=== PATIENT | female | born 1930 | race African-American/Black ===

== ENCOUNTER → 2016-12-19 | Outpatient (CLI) | payer MEDICARE, OTHER ==
[~2016-12-19] MED LIST: BUPIVACAINE MPF 0.25% 10 ML VIAL. ONE; CHOL200044 PO; GLUC1TAB26 PO; HYDR-971 PO; IOHEXOL 180 MG/ML 10 ML VIAL. ONE; LEVO100T PO; LOSA1TAB17 PO; LOVA40TA2 PO; MAGN100T3 PO; METO25TA9 PO; MULT-658 PO; OMEG500C3 PO; TRAM50TA PO; methylPREDNISolone ACETATE 80 MG/ML VIAL. ONE
--- NOTE | 2016-12-20 09:38 | PN ---
DATE: 12/19/2016 PROGRESS NOTE DIAGNOSES: 1. Cervical radiculopathy with cervical spinal stenosis. 2. Lumbar radiculopathy with lumbar spinal stenosis and degenerative disk disease. 3. Primary osteoarthritis, bilateral knee joint. HISTORY OF PRESENT ILLNESS: The patient is an 86-year-old female who returns for followup status post cervical epidural steroid injection, most recently on 11/27/2016. The patient did very well with these; with approximately 80-90% improvement in her neck and upper extremities, right arm specifically much more improved. The patient reports it much better. She is doing very well with this. Her main complaint today is knee pain bilaterally, left much greater than right, which is a 10 on a scale of 10, as well as weakness in her legs with walking and standing, worse with changing positions or standing on one leg or climbing steps or the curb on the street when she puts all of her weight on her left leg. The patient reports her right leg is more comfortable performing these activities, but still very painful as well, but the left leg is much more painful. The patient reports no new motor or sensory deficits or other complaints. No new bowel or bladder incontinence or other changes. PHYSICAL EXAMINATION: VITAL SIGNS: The patient's blood pressure is 139/67, pulse , respirations are 18, temperature 98.4 degrees Fahrenheit. GENERAL: The patient is awake, alert, oriented, appropriate, very pleasant demeanor. The patient is accompanied by with her cousin. HEENT: Head shows normocephalic, atraumatic. Extraocular movements are intact, symmetrical. Oral cavity, mucous membranes are moist and pink. NECK: Shows anterior throat supple without palpable lymphadenopathy noted. Swallow reflex is symmetrical. CHEST: Shows normal on inspection. Breath sounds are clear to auscultation bilaterally. HEART: Shows S1 and S2 clear. ABDOMEN: Soft, nontender, nondistended. No palpable organomegaly is noted. No rebound or guarding demonstrated. BACK: Shows spine grossly midline. Cervical paraspinous muscle shows some very mild tenderness with palpation only with very deep palpation, more on the right than the left in the inferior aspect of the cervical paraspinous muscles in the superior medial aspect of the trapezius without asymmetry, without trigger points and no radiation. EXTREMITIES: The patient's upper extremities show deep tendon reflexes at 1+ in the biceps and triceps tendons. Motor exam remain strong at about 4 on a scale of 5 with plc controls engineer strength and is more equal with right and left plc controls engineer strength at 4 out of 5 on exam today. The patient's lower extremities show some significant tenderness over the left knee with even passive movement, but without any ratcheting or clicking right side without ratcheting or clicking as on the left, painful with standing. The patient shows significant pain with putting all of her weight on her left foot and loses balance very quickly as well. She is using a walker to ambulate. Has a very shuffling gait, appears to favor the left lower extremity slightly more than the right. Motor exam is however, is intact with 5/5 dorsiflexion and extension. Options were discussed with the patient and the patient's old chart was reviewed as her current medication regimen and updated. Current review of systems updated today as well and we will proceed with a left intra-articular knee joint injection with fluoroscopic guidance. Risks were again discussed including, but not limited to bleeding, infection, possibility of intravascular injection sequelae, spread of local anesthetic and numbness, side effects of steroid medication and poor results regarding pain control. The patient understands and wishes to proceed. The patient will return to clinic in approximately 2 weeks for followup. She was counseled to return appointment, appointment, activity level and side effects to be aware of. DIAGNOSIS: Primary osteoarthritis, bilateral knee joint. PROCEDURES: Left knee intra-articular injection with C-arm fluoroscopic guidance under sterile prep and drape using local anesthetic. MEDICATION INJECTED: Depo-Medrol 80 mg plus 3 mL of 0.25% bupivacaine and 1.5 mL of Isovue for contrast. CONDITION AT DISCHARGE: Stable. The patient tolerated the procedure well, had no complications. MAKAYLA KOCH MD DR: MENDY/michelle JOB#: [id number] / [id number]
== END | disposition home or self-care (01) ==
LOC: PNCL 13:54
PROVIDERS: ATTEND Anesthesiology
DX: M17.0 Bilateral primary osteoarthritis of knee (principal); E78.00 Pure hypercholesterolemia, unspecified; I10 Essential (primary) hypertension; E03.9 Hypothyroidism, unspecified; Z98.41 Cataract extraction status, right eye; Z98.42 Cataract extraction status, left eye
CPT/HCPCS: 20610; J1040; J3490

== ENCOUNTER → 2017-01-21 | Outpatient (CLI) | payer MEDICARE, OTHER ==
[~2017-01-21] MED LIST changes: -BUPIVACAINE MPF 0.25% 10 ML VIAL. ONE; +methylPREDNISolone ACETATE 40 MG/ML VIAL. ONE
--- NOTE | 2017-01-22 10:56 | PAIN ---
DATE OF SERVICE: 01/21/2017 DIAGNOSES: 1. Cervical radiculopathy with cervical spinal stenosis. 2. Lumbar radiculopathy with lumbar degenerative disk disease and lumbar spinal stenosis. 3. Osteoarthritis, bilateral knees. HISTORY OF PRESENT ILLNESS: The patient is an 86-year-old female who returns for followup status post left knee joint injection on 12/19/2016. The patient is also status post lumbar epidural steroid injections and cervical epidural steroid injections, most recently on 11/27/2016 for her last cervical injection. The patient reports she did very well after each of these with about 80% improvement but the pain in her neck and right upper extremity is now returning not to baseline but about 50% or so. The patient reports it is a 6-7 on a scale of 10; worse in the morning; it is aching, sometimes sharp and dull pain, radiating to bilateral upper extremities, mostly in the right side with some cramping as well. Also, some low back pain and lower extremity pain and cramps, but it is much secondary to her neck and right upper extremity pain. The patient reports no loss of motor function, but significant tenderness and pain with movement of the right upper extremity. Any weightbearing at all, carrying any items with the right arm or bringing her arm away from her body out to the side, it is beginning to impede how she is getting dressed in the day and just any activities using her right upper extremity. The patient reports no loss of motor function, but significant tenderness and pain in the right arm as noted. PHYSICAL EXAMINATION: VITAL SIGNS: Today, the patient's blood pressure is 161/72, pulse 78, respirations 16, temperature 98.3 degrees Fahrenheit, height is 5 feet 6 inches, weight is 138 pounds. GENERAL: The patient is awake, alert, oriented, appropriate, very pleasant demeanor. HEENT: Shows normocephalic and atraumatic. Extraocular movements are intact, symmetrical. Oral cavity shows mucous membranes are moist and pink. Dentition is intact. NECK: Shows anterior throat supple. CHEST: Shows normal on inspection. Breath sounds are clear to auscultation bilaterally. HEART: Shows S1 and S2 clear. No murmurs auscultated. ABDOMEN: Soft, nontender, nondistended. No palpable organomegaly is noted. BACK: The patient's back shows spine grossly in the midline. Neck shows some moderate paraspinous musculature tenderness in the bilateral inferior aspect of the cervical paraspinous muscles diffusely without asymmetry. The patient does show good rotational motion both laterally as well as extension and flexion with some minor guarding with extension and minor pain reported, but not with forward flexion. EXTREMITIES: Upper extremity showed deep tendon reflexes at 1+ in the biceps and triceps tendons. Motor exam is strong with supervisor cab strength rated at approximately 4 on a scale of 5, but equal and symmetrical as is biceps and triceps flexion. Options were discussed with the patient and the patient's old chart was reviewed as her current medication regimen and updated. Current review of systems updated today as well and we will proceed with the cervical epidural steroid injection with fluoroscopic guidance as the first in this series. Risks were again discussed including but not limited to bleeding, infection, possibility of epidural hematoma, subsequent neurologic compromise, dural puncture, headaches, spinal cord and/or nerve damage, side effects of steroid medication and poor results regarding pain control. The patient understands and wishes to proceed. The patient will return to the clinic in approximately 2 weeks for followup, was counseled on return appointment, activity level and side effects to be aware of. DIAGNOSES: Cervical radiculopathy with cervical spinal stenosis. PROCEDURE: Cervical epidural steroid injection in translaminar approach at the C6-C7 level using C-arm fluoroscopic guidance under sterile prep and drape, using local anesthesia. MEDICATIONS INJECTED: Depo-Medrol 120 mg plus 5 mL of preservative-free normal saline and 2 mL of Isovue for contrast. CONDITION AT DISCHARGE: Stable. The patient tolerated the procedure well, had no complications. MAKAYLA KOCH MD DR: MENDY/michelle JOB#: [id number] / [id number]
== END | disposition home or self-care (01) ==
LOC: PNCL 11:39
PROVIDERS: ATTEND Anesthesiology
DX: M48.02 Spinal stenosis, cervical region (principal); M54.12 Radiculopathy, cervical region; E03.9 Hypothyroidism, unspecified; E78.00 Pure hypercholesterolemia, unspecified; I10 Essential (primary) hypertension; Z98.41 Cataract extraction status, right eye; Z98.42 Cataract extraction status, left eye
CPT/HCPCS: 62321; J1030; J1040

== ENCOUNTER → 2017-01-28 | Outpatient (CLI) | payer MEDICARE, OTHER ==
[~2017-01-28] MED LIST changes: -IOHEXOL 180 MG/ML 10 ML VIAL. ONE; +REGADENOSON 0.4 MG/5 ML DISP.SYRIN. IV ONE; -methylPREDNISolone ACETATE 40 MG/ML VIAL. ONE; -methylPREDNISolone ACETATE 80 MG/ML VIAL. ONE
--- NOTE | 2017-01-28 15:09 | RAD ---
APPROVED REPORT Test Type: Pharmacological Stress Nurse/Tech: Katie Merchant R.N. Test Indications: chest tightness Cardiac History: heart murmur, htn, Medications: see ehr Medical History: see ehr Resting ECG: sr Resting Heart Rate: 64 bpm Resting Blood Pressure: 198/78mmHg Pretest Chest Pain: No chest pain Nurse/Tech Notes lungs cta, heart tones regular, good radial pulse Consent: The procedure was explained to the patient in lay terms. Informed consent was witnessed. [facility] eout was entered into [facility]. History and Stress Test performed by Katie Merchant R.N. Pharm. Details Pharmacologic stress testing was performed using 0.4mg per 5ml of regadenoson given intravenously ove r 7-10 seconds. Stress Symptoms chest tightness POST EXERCISE Reason for Termination: Infusion complete Max HR: 89 bpm Max Blood Pressure: 194/82mmHg Chest Pain: Yes. see above Arrhythmia: No. ST Change: Yes. ST depression in mult leads during recovery INTERPRETATION Stress EKG Conclusion: The resting EKG shows a sinus rhythm with mild nonspecific ST changes. The stress EKG shows no significant changes from baseline. No EKG evidence of stress-induced ischemia. Imaging Protocol IMAGE PROTOCOL: Rest Tc-99m/stress Tc-99m 1 day Rest: Stress: Viability: Radiopharm.Tc99m DrecycltrYu80z Sestamibi Ebim91xLs 32mCi Duration 15min. 10min. Img Date 01/28/2017 01/28/2017 Inj-Img Pqnh08sdx. 60min. Rest Admin Site:IV - Right AntecubitalAdministrator:RT Umer (R)(N) Stress Admin Site: IV - Right AntecubitalAdministrator: RT Umer (R)(N) STRESS DATA End Diast. Vol.87.0mlAv. Heart Rate79.0bpm End Syst. Vol.31.0mlCO Index BSA0.0L/min Myocardial Olqz831.0gEject. Bfdwgtzs05.0% Stress Rates Pk. Fill Rate2.13EDV/secLVtime Pk. Fill 175.52msec Pk. Empty Rate4.38ESV/secLVtime Pk. Squrk010.44msec 10/23 Pk. Fill1.26EDV/sec Stress Scores Regional WT1.00Summed WT13.00 Regional WM0.00Summed WM8.00 LV Perfusion The stress scans showed no significant defects. The rest scans showed no significant defects. Nuclear imaging shows no reversible ischemia or infarct. Wall Motion Normal left ventricular systolic function with an ejection fraction of 64%. LV Perf. Quant 17 Seg. SSS2.00 17 Seg. SRS0.00 17 Seg. SDS2.00 Stress Defect Extent (% LAD)0.00Rest Defect Extent (% LAD)0.00Rev. Defect Extent (% LAD)0.00 Stress Defect Extent (% LCX) 0.00Rest Defect Extent (% LCX)0.00Rev. Defect Extent (% LCX)0.00 Stress Defect Extent (% RCA)0.00Rest Defect Extent (% RCA)0.00Rev. Defect Extent (% RCA)0.00 Stress Defect Extent (% MONTSERRAT)0.00Rest Defect Extent (% MONTSERRAT)0.00Rev. Defect Extent (% MONTSERRAT)0.00 Conclusion 1. No EKG evidence of stress-induced ischemia. 2. Nuclear medicine imaging shows no reversible ischemia or infarct. 3. Normal left ventricular systolic function with an ejection fraction of 64%. 4. Low risk Lexiscan nuclear stress test.
--- NOTE | 2017-01-28 16:30 | CARD ---
APPROVED REPORT EXAM: Two-dimensional and M-mode echocardiogram with Doppler and color Doppler. Other Information Quality : GoodHR: 72bpm Rhythm : NSR INDICATION Murmur RISK FACTORS Hyperlipidemia Family History 2D DIMENSIONS RVDd2.3 (2.9-3.5cm)Left Atrium(2D)3.4 (1.6-4.0cm) IVSd1.2 (0.7-1.1cm)Aortic Root(2D)4.4 (2.0-3.7cm) LVDd4.8 (3.9-5.9cm)LVOT Diameter2.3 (1.8-2.4cm) PWd1.3 (0.7-1.1cm)LVDs3.1 (2.5-4.0cm) FS (%) 35.4 %SV70.3 ml Aortic Valve AoV Peak Chip.155.1cm/sAoV VTI26.1cm AO Peak GR.9.6mmHgLVOT Peak Chip.128.5cm/s AO Mean GR.4mmHgAVA (VMAX)3.53cm2 AI P 1/2 Eafg722sp Mitral Valve MV E Iokbuzbo28.1cm/sMV E Peak Gr.3mmHg MV DECEL PEIF267ejNS A Fdrsyhjy95.8cm/s MV E Mean Gr.1mmHgE/A Ratio1.7 MV A Hisxqloh321lg Pulmonary Valve PV Peak Cwsouwrt69.4cm/s Tricuspid Valve TR P. Wrqunsnn888zp/sTR Peak Gr.43mmHg Pulmonary Vein S1 Eirltmcy19.6cm/sD2 Iktkqrmh79.6cm/s PVa ebfyzckv99rmjg LEFT VENTRICLE The left ventricle is normal size. There is mild concentric left ventricular hypertrophy. The left ve ntricular systolic function is normal and the ejection fraction is within normal range. The Ejection Fraction is 55-60%. There is normal LV segmental wall motion. Transmitral Doppler flow pattern is Gra de II-pseudonormal filling dynamics. RIGHT VENTRICLE The right ventricle is normal size. There is normal right ventricular wall thickness. The right ventr icular systolic function is normal. ATRIA The left atrium is mildly dilated. The right atrium size is normal. The interatrial septum is intact with no evidence for an atrial septal defect or patent foramen ovale as noted on 2-D or Doppler imagi ng. AORTIC VALVE The aortic valve is mildly sclerotic. The aortic valve is trileaflet. Doppler and Color Flow revealed mild to moderate aortic regurgitation. There is no significant aortic valvular stenosis. MITRAL VALVE The mitral valve leaflets are thickened and calcified. There is no evidence of mitral valve prolapse. There is no mitral valve stenosis. Doppler and Color Flow revealed mild mitral regurgitation. TRICUSPID VALVE Doppler and Color Flow revealed mild tricuspid regurgitation. The pulmonary artery systolic pressure is estimated at 46 mmHg. PULMONIC VALVE Doppler and Color Flow revealed moderate pulmonic valvular regurgitation. There is no pulmonic valvul ar stenosis. GREAT VESSELS There is enlargement of the sinus of valsalva. 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 The decending arch is within normal limits in diameter. There is mild pulmonary artery dil atation. The IVC is normal in size and collapses >50% with inspiration. PERICARDIAL EFFUSION There is no evidence of significant pericardial effusion. Critical Notification Critical Value: No <Conclusion> The left ventricle is normal size. The left ventricular systolic function is normal and the ejection fraction is within normal range. The Ejection Fraction is 55-60%. There is mild concentric left ventricular hypertrophy. There is no significant aortic valvular stenosis. Doppler and Color Flow revealed mild to moderate aortic regurgitation. Doppler and Color Flow revealed mild mitral regurgitation. Doppler and Color Flow revealed mild tricuspid regurgitation. The pulmonary artery systolic pressure is estimated at 46 mmHg. Doppler and Color Flow revealed moderate pulmonic valvular regurgitation. 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 in the arch region. The decending arch is within normal limits in diameter.
== END | disposition home or self-care (01) ==
LOC: NM 09:05
PROVIDERS: ATTEND Internal Medicine Cardiovascular Disease
DX: R07.89 Other chest pain (principal); R06.09 Other forms of dyspnea; R01.1 Cardiac murmur, unspecified; I08.3 Combined rheumatic disorders of mitral, aortic and tricuspid valves
CPT/HCPCS: 78452; 93017; 93306; 96374; 96375; 96376; A9500; J2785

== ENCOUNTER 2017-12-02 12:41 | Emergency (ER) | payer MEDICARE ==
[2017-12-02 13:45] LABS: BILIRUBIN,URINE NEGATIVE (NEG); CLARITY,URINE CLEAR; COLOR,URINE YELLOW; GLUCOSE,URINE NEGATIVE (NEG); NITRITE,URINE NEGATIVE (NEG); PH,URINE 6.5; PROTEIN,URINE NEGATIVE (NEG-TRACE); UROBILINOGEN,URINE 0.2 mg/dL (0.2 mg/dL)
[2017-12-02] MEDS: IV NORMAL SALINE 1000ML BAG 1,000 ML IV ×2 (13:54)
[2017-12-02 13:55] LABS: BASO % 0 % (0-3); EOS % 0 % (0-3); HEMATOCRIT 33.7 % (36.0-47.0); HEMOGLOBIN 11.2 g/dL (12.0-15.5); LYMPH # 0.3 x10^3/uL (1.0-4.8); LYMPH % 5 % (24-48); MEAN CORPUSCULAR HEMOGLOBIN 32 pg (25-35); MEAN CORPUSCULAR HGB CONC 33 g/dL (31-37); MEAN CORPUSCULAR VOLUME 96 fL (79-100); MONO # 0.4 x10^3/uL (0.0-1.1); MONO % 7 % (0-9); NEUT # 4.8 x10^3uL (1.8-7.7); NEUT % 87 % (31-73); PLATELET COUNT 203 x10^3/uL (140-400); RED CELL DISTRIBUTION WIDTH 17.7 % (11.5-14.5); WHITE BLOOD COUNT 5.5 x10^3/uL (4.0-11.0)
[2017-12-02 13:57] LABS: BACTERIA,URINE FEW /HPF (0-FEW); HYALINE CASTS, URINE OCCASIONAL /HPF; SQUAMOUS EPITHELIAL CELL,UR FEW /LPF
[2017-12-02 13:59] LABS: ADD MAN DIFF? YES
[2017-12-02 14:08] LABS: ANION GAP 11 (6-14); BLOOD UREA NITROGEN 12 mg/dL (7-20); CALCIUM 9.3 mg/dL (8.5-10.1); CARBON DIOXIDE 28 mmol/L (21-32); CHLORIDE 100 mmol/L (98-107); CREATININE 0.8 mg/dL (0.6-1.0); GFR 82.5; GLUCOSE 103 mg/dL (70-99); SODIUM 139 mmol/L (136-145)
[2017-12-02 14:14] LABS: CREATINE KINASE 103 U/L (26-192); MAGNESIUM 1.8 mg/dL (1.8-2.4)
[2017-12-02 14:39] LABS: % BANDS 14 % (0-9); % LYMPHS 3 % (24-48); % MONOS 5 % (0-10); % SEGS 78 % (35-66)
[2017-12-02 14:46] LABS: PLT ESTIMATE ADEQUATE (ADEQUATE); POLYCHROMASIA SLIGHT; TOXIC GRANULATION SLIGHT
== END 2017-12-02 16:27 | disposition home or self-care (01) ==
LOC: ER 12:41
DX: R25.2 Cramp and spasm (principal); N39.0 Urinary tract infection, site not specified; I10 Essential (primary) hypertension; M79.605 Pain in left leg; M79.604 Pain in right leg; E78.00 Pure hypercholesterolemia, unspecified; E03.9 Hypothyroidism, unspecified
CPT/HCPCS: 36415; 80048; 81001; 82550; 83735; 85007; 85025; 87086; 93005; 96360; 99285-25; J7030

== ENCOUNTER 2019-03-21 15:13 | Emergency (ER) | payer MEDICARE ==
[~2019-03-21] VITALS: Ht 165.1 cm; Wt 61.2 kg
[~2019-03-21 15:13] MED LIST changes: +CYCL10TA2 PO; +HYDR-3164 PO; -HYDR-971 PO; +LEVO750T31 PO; -LOSA1TAB17 PO; +LOSA1TAB22 PO; +METO-239 PO; -METO25TA9 PO; -REGADENOSON 0.4 MG/5 ML DISP.SYRIN. IV ONE
[2019-03-21 16:00] LABS: BASO % 1 % (0-3); EOS # 0.1 x10^3/uL (0.0-0.7); EOS % 1 % (0-3); HEMATOCRIT 35.2 % (36.0-47.0); HEMOGLOBIN 11.7 g/dL (12.0-15.5); LYMPH # 0.9 x10^3/uL (1.0-4.8); LYMPH % 17 % (24-48); MEAN CORPUSCULAR HEMOGLOBIN 32 pg (25-35); MEAN CORPUSCULAR HGB CONC 33 g/dL (31-37); MEAN CORPUSCULAR VOLUME 95 fL (79-100); MONO # 0.5 x10^3/uL (0.0-1.1); MONO % 10 % (0-9); NEUT # 3.7 x10^3uL (1.8-7.7); NEUT % 71 % (31-73); PLATELET COUNT 217 x10^3/uL (140-400); RED BLOOD COUNT 3.71 x10^6/uL (3.50-5.40); RED CELL DISTRIBUTION WIDTH 16.9 % (11.5-14.5); WHITE BLOOD COUNT 5.3 x10^3/uL (4.0-11.0)
[2019-03-21] MEDS ORDERED: fentaNYL PF VIAL 100 MCG/2 ML VIAL IV ONE (16:15)
[2019-03-21] MEDS ORDERED: ONDANSETRON PF 4 MG/2 ML VIAL. IV ONE (16:15)
[2019-03-21 16:23] LABS: BILIRUBIN,URINE NEGATIVE (NEG); CLARITY,URINE CLEAR; COLOR,URINE YELLOW; NITRITE,URINE NEGATIVE (NEG); PROTEIN,URINE 30 mg/dL (NEG-TRACE)
[2019-03-21 16:26] LABS: PROTHROMBIN TIME PATIENT 13.9 SEC (11.7-14.0)
--- NOTE | 2019-03-21 16:28 | PHYS DOC ---
Past Medical History Past Medical History: Anemia, Arthritis, High Cholesterol, Hypertension, Hypothyroid Past Surgical History: Other Additional Past Surgical Histo: Thyroidectomy Alcohol Use: None Drug Use: None Adult General Chief Complaint Chief Complaint: HEADACHE HPI HPI Patient is a 88 year old female resident of senior living who brought in by EMS because of frequent falls and complaining of headache and neck pain. Patient states she was trying to get herself from wheelchair to the commode and had a fall during the process of transfer. Patient denies loss of consciousness but complaining of headache and neck pain. She has had frequent episodes of falls recently with generalized weakness. Patient denies chest pain, focal neuro deficit, nausea and vomiting, blurred vision. Review of Systems Review of Systems Constitutional: Denies fever or chills [] Eyes: Denies change in visual acuity, redness, or eye pain [] HENT: Denies nasal congestion or sore throat [] Respiratory: Denies cough or shortness of breath [] Cardiovascular: No additional information not addressed in HPI [] GI: Denies abdominal pain, nausea, vomiting, bloody stools or diarrhea [] : Denies dysuria or hematuria [] Musculoskeletal: Denies back pain or joint pain [] Integument: Reports skin rash Neurologic: Reports generalized weakness and headache, denies focal weakness or sensory changes [] Endocrine: Denies polyuria or polydipsia [] All other systems were reviewed and found to be within normal limits, except as documented in this note. Current Medications Current Medications Current Medications Medications (Trade) Dose Ordered Sig/Stephanie Start Time Stop Time Status Last Admin Dose Admin Fentanyl Citrate (Fentanyl 2ml Vial) 25 mcg 1X ONCE 03/21/19 16:15 03/21/19 16:16 DC 03/21/19 16:34 25 MCG Ondansetron HCl (Zofran) 4 mg 1X ONCE 03/21/19 16:15 03/21/19 16:16 DC 03/21/19 16:33 4 MG Allergies Allergies Allergies Coded Allergies Type Severity Reaction Last Updated Verified No Known Drug Allergies 01/20/14 No Physical Exam Physical Exam Constitutional: Well developed, well nourished, mild distress, non-toxic appearance. [] HENT: Normocephalic, atraumatic, oropharynx moist, no oral exudates, nose normal. [] Eyes: PERRLA, EOMI, conjunctiva normal, no discharge. [] Neck: Normal range of motion, no tenderness, supple, no stridor. [] Cardiovascular:Heart rate regular rhythm, no murmur [] Lungs & Thorax: Bilateral breath sounds clear to auscultation [] Abdomen: Bowel sounds normal, soft, no tenderness, no masses, no pulsatile masses. [] Skin: Left upper back and upper extremity blisterlike rash matching with shingles Back: No tenderness, no CVA tenderness. [] Extremities: No tenderness, no cyanosis, no clubbing, ROM intact, no edema. [] Neurologic: Alert and oriented X 3, normal motor function, normal sensory function, no focal deficits noted. [] Psychologic: Affect normal, judgement normal, mood normal. [] Current Patient Data Vital Signs Vital Signs Date Time Temp Pulse Resp B/P (MAP) Pulse Ox O2 Delivery O2 Flow Rate FiO2 03/21/19 16:34 16 95 03/21/19 15:13 99.2 84 213/100 (137) Room Air 99.2 Lab Values Laboratory Tests Test 03/21/19 15:43 03/21/19 15:54 White Blood Count 5.3 x10^3/uL (4.0-11.0) Red Blood Count 3.71 x10^6/uL (3.50-5.40) Hemoglobin 11.7 g/dL (12.0-15.5) L Hematocrit 35.2 % (36.0-47.0) L Mean Corpuscular Volume 95 fL (79-100) Mean Corpuscular Hemoglobin 32 pg (25-35) Mean Corpuscular Hemoglobin Concent 33 g/dL (31-37) Red Cell Distribution Width 16.9 % (11.5-14.5) H Platelet Count 217 x10^3/uL (140-400) Neutrophils (%) (Auto) 71 % (31-73) Lymphocytes (%) (Auto) 17 % (24-48) L Monocytes (%) (Auto) 10 % (0-9) H Eosinophils (%) (Auto) 1 % (0-3) Basophils (%) (Auto) 1 % (0-3) Neutrophils # (Auto) 3.7 x10^3uL (1.8-7.7) Lymphocytes # (Auto) 0.9 x10^3/uL (1.0-4.8) L Monocytes # (Auto) 0.5 x10^3/uL (0.0-1.1) Eosinophils # (Auto) 0.1 x10^3/uL (0.0-0.7) Basophils # (Auto) 0.0 x10^3/uL (0.0-0.2) Prothrombin Time 13.9 SEC (11.7-14.0) Prothrombin Time INR 1.1 (0.8-1.1) Sodium Level 140 mmol/L (136-145) Potassium Level 4.3 mmol/L (3.5-5.1) Chloride Level 103 mmol/L (98-107) Carbon Dioxide Level 26 mmol/L (21-32) Anion Gap 11 (6-14) Blood Urea Nitrogen 17 mg/dL (7-20) Creatinine 0.7 mg/dL (0.6-1.0) Estimated GFR (Cockcroft-Gault) 96.0 BUN/Creatinine Ratio 24 (6-20) H Glucose Level 119 mg/dL (70-99) H Lactic Acid Level 1.3 mmol/L (0.4-2.0) Calcium Level 9.9 mg/dL (8.5-10.1) Magnesium Level 1.7 mg/dL (1.8-2.4) L Total Bilirubin 0.4 mg/dL (0.2-1.0) Aspartate Amino Transferase (AST) 36 U/L (15-37) Alanine Aminotransferase (ALT) 20 U/L (14-59) Alkaline Phosphatase 103 U/L (46-116) Creatine Kinase 183 U/L (26-192) Troponin I Quantitative 0.082 ng/mL (0.000-0.055) CA-Xkv-F-Type Natriuretic Peptide 16172 pg/mL (0-449) H Total Protein 8.6 g/dL (6.4-8.2) H Albumin 3.4 g/dL (3.4-5.0) Albumin/Globulin Ratio 0.7 (1.0-1.7) L Urine Collection Type Unknown Urine Color Yellow Urine Clarity Clear Urine pH 6.0 Urine Specific [place] 1.015 Urine Protein 30 mg/dL (NEG-TRACE) Urine Glucose (UA) Negative mg/dL (NEG) Urine Ketones (Stick) Negative mg/dL (NEG) Urine Blood Moderate (NEG) Urine Nitrite Negative (NEG) Urine Bilirubin Negative (NEG) Urine Urobilinogen Dipstick 1.0 mg/dL (0.2 mg/dL) Urine Leukocyte Esterase Negative (NEG) Urine RBC 6-10 /HPF (0-2) Urine WBC 0 /HPF (0-4) Urine Squamous Epithelial Cells None /LPF Urine Bacteria 0 /HPF (0-FEW) Laboratory Tests 03/21/19 15:43 Laboratory Tests 03/21/19 15:43 EKG EKG EKG interpreted by me. EKG at 16 0 point showed normal sinus rhythm at rate of 87, prolonged IL at 142, no acute ST and T-wave abnormalities. Radiology/Procedures Radiology/Procedures [address] [address] IMAGING REPORT Signed PATIENT: JYOTSNA SOL ACCOUNT: [id number] : 1930 LOCATION: ER AGE: 88 SEX: F EXAM STATUS: REG ER ORD. PHYSICIAN: LONNIE EISENBERG MD REASON: Dizzy, frequent falls PROCEDURE: PORTABLE CHEST 1V EXAM: CHEST 1 VIEW History: Dizziness COMPARISON: 03/16/2017 TECHNIQUE: Single portable radiograph of the chest FINDINGS: Mild cardiomegaly. Minimal prominent bilateral interstitial lung markings likely chronic interstitial changes unchanged. The costophrenic sulci are clear and well demarcated. IMPRESSION: No acute cardiopulmonary findings. Electronically signed by: Alexis Johnson MD (03/21/2019 4:53 PM) [facility] DICTATED and SIGNED BY: ALEXIS JOHNSON MD DATE: 03/21/[address] [id number] IMAGING REPORT Signed PATIENT: JYOTSNA SOL ACCOUNT: [id number] : 1930 LOCATION: ER AGE: 88 SEX: F EXAM STATUS: REG ER ORD. PHYSICIAN: LONNIE EISENBERG MD REASON: frequent falls PROCEDURE: CT HEAD AND CERVICAL SPINE WO Examination: CT head and cervical spine without contrast HISTORY: History of frequent falls CT HEAD COMPARISON: 03/16/2017 Exposure: One or more of the following individualized dose reduction techniques were utilized for this examination: 1. Automated exposure control 2. Adjustment of the mA and/or kV according to patient size 3. Use of iterative reconstruction technique TECHNIQUE: 5 mm contiguous axial images were obtained from the skull base to the vertex in both bone and soft tissue algorithm. FINDINGS: Moderate bilateral periventricular white matter hypodensities likely chronic small vessel ischemic disease. No evidence of acute intracranial hemorrhage. No extra-axial fluid collections. No mass effect or midline shift. Ventricular size is appropriate. Basal cisterns are patent. No fractures identified.Agarwal-white differentiation is preserved.Globes and orbits are within normal limits. Paranasal sinuses and mastoid air cells are clear. CT CERVICAL SPINE COMPARISON: None Available. Technique: 2.5 mm contiguous axial images were obtained from the skull base through the cervicothoracic junction in both bone and soft tissue algorithm. Additional sagittal and coronal reconstructions were also performed. FINDINGS: Vertebral body heights are maintained. Cervical lordosis is preserved. The lateral masses of C1 are aligned upon C2. No fractures identified. Severe intervertebral disc height loss identified throughout the cervical spine likely degeneration. There is reversal of normal cervical lordosis. There is bony fusion of C5-C6 vertebral bodies. There is severe spinal canal stenosis identified in the cervical spine particularly at C5, C6, vertebral levels. The paraspinous soft tissues are unremarkable. Visualized intracranial contents are unremarkable. Lung apices are clear. IMPRESSION: 1. No acute intracranial findings. 2. No acute fracture of the cervical spine. Correlate clinically. 2. Severe degenerative changes cervical spine. Severe spinal canal stenosis identified at C5-C6, C6-C7 vertebral levels. Electronically signed by: Alexis Johnson MD (03/21/2019 4:47 PM) [facility] DICTATED and SIGNED BY: ALEXIS JOHNSON MD DATE: 03/21/19 3141 Course & Med Decision Making Course & Med Decision Making Pertinent Labs and Imaging studies reviewed. (See chart for details) Evaluation of patient in ER showed 88-year-old female patient brought in from senior living because of frequent fall and each. Patient had shingles rash on left upper back and as stated she had pain and rash since yesterday. Patient had elevation of BNP and marked elevation of troponin and chronic renal in sufficiency and states she had history of congestive heart failure. Patient did not want hospitalization regarding CHF and elevation of troponin. Dragon Disclaimer Dragon Disclaimer This electronic medical record was generated, in whole or in part, using a voice recognition dictation system. Departure Departure Impression: Primary Impression: Frequent falls Additional Impressions: Shingles Congestive heart failure Elevated troponin Chronic renal insufficiency Disposition: HOME, SELF-CARE (the senior living at [facility]) Condition: IMPROVED Referrals: ROME CALLAHAN MD (PCP) Patient Instructions: Fall Prevention and Home Safety, Heart Failure, Shingles Additional Instructions: Continue home medication Follow-up with your primary care physician in 3-5 days Return to ER if not getting better Scripts Acetaminophen With Codeine (TYLENOL WITH CODEINE #3 TABLET) 1 Each Tablet 1 TAB PO PRN Q6HRS PRN for PAIN, #12 TAB Prov: LONNIE EISENBERG MD 03/21/19 Acyclovir (ACYCLOVIR) 200 Mg Capsule 1 CAP PO 5XDAY, #25 CAP Prov: LONNIE EISENBERG MD 03/21/19 Problem Qualifiers Additional Impressions: Shingles Herpes zoster complications: without complications Qualified Codes: B02.9 - Zoster without complications Congestive heart failure Heart failure type: unspecified Heart failure chronicity: unspecified Qualified Codes: I50.9 - Heart failure, unspecified Chronic renal insufficiency Chronic kidney disease stage: unspecified stage Qualified Codes: N18.9 - Chronic kidney disease, unspecified LONNIE EISENBERG MD Mar 21, 2019 16:28
[2019-03-21 16:42] LABS: BACTERIA,URINE 0 /HPF (0-FEW); WBC,URINE 0 /HPF (0-4)
[2019-03-21 16:46] LABS: CALCIUM 9.9 mg/dL (8.5-10.1); CREATININE 0.7 mg/dL (0.6-1.0); POTASSIUM 4.3 mmol/L (3.5-5.1)
--- NOTE | 2019-03-21 16:50 | RAD ---
Examination: CT head and cervical spine without contrast HISTORY: History of frequent falls CT HEAD COMPARISON: 03/16/2017 Exposure: One or more of the following individualized dose reduction techniques were utilized for this examination: 1. Automated exposure control 2. Adjustment of the mA and/or kV according to patient size 3. Use of iterative reconstruction technique TECHNIQUE: 5 mm contiguous axial images were obtained from the skull base to the vertex in both bone and soft tissue algorithm. FINDINGS: Moderate bilateral periventricular white matter hypodensities likely chronic small vessel ischemic disease. No evidence of acute intracranial hemorrhage. No extra-axial fluid collections. No mass effect or midline shift. Ventricular size is appropriate. Basal cisterns are patent. No fractures identified.Agarwal-white differentiation is preserved.Globes and orbits are within normal limits. Paranasal sinuses and mastoid air cells are clear. CT CERVICAL SPINE COMPARISON: None Available. Technique: 2.5 mm contiguous axial images were obtained from the skull base through the cervicothoracic junction in both bone and soft tissue algorithm. Additional sagittal and coronal reconstructions were also performed. FINDINGS: Vertebral body heights are maintained. Cervical lordosis is preserved. The lateral masses of C1 are aligned upon C2. No fractures identified. Severe intervertebral disc height loss identified throughout the cervical spine likely degeneration. There is reversal of normal cervical lordosis. There is bony fusion of C5-C6 vertebral bodies. There is severe spinal canal stenosis identified in the cervical spine particularly at C5, C6, vertebral levels. The paraspinous soft tissues are unremarkable. Visualized intracranial contents are unremarkable. Lung apices are clear. IMPRESSION: 1. No acute intracranial findings. 2. No acute fracture of the cervical spine. Correlate clinically. 2. Severe degenerative changes cervical spine. Severe spinal canal stenosis identified at C5-C6, C6-C7 vertebral levels. Electronically signed by: Alexis Johnson MD (03/21/2019 4:47 PM) [facility]
[2019-03-21 16:53] LABS: ALBUMIN 3.4 g/dL (3.4-5.0); ALBUMIN/GLOBULIN RATIO 0.7 (1.0-1.7); MAGNESIUM 1.7 mg/dL (1.8-2.4); TOTAL BILIRUBIN 0.4 mg/dL (0.2-1.0); TOTAL PROTEIN 8.6 g/dL (6.4-8.2)
--- NOTE | 2019-03-21 16:56 | RAD ---
EXAM: CHEST 1 VIEW History: Dizziness COMPARISON: 03/16/2017 TECHNIQUE: Single portable radiograph of the chest FINDINGS: Mild cardiomegaly. Minimal prominent bilateral interstitial lung markings likely chronic interstitial changes unchanged. The costophrenic sulci are clear and well demarcated. IMPRESSION: No acute cardiopulmonary findings. Electronically signed by: Alexis Johnson MD (03/21/2019 4:53 PM) [facility]
[2019-03-21 17:00] VITALS: BP 161/71
[2019-03-21] MEDS ORDERED: ACYC200C PO (17:21)
[2019-03-21] MEDS ORDERED: ACET-704 PO (17:21)
--- NOTE | 2019-03-22 11:27 | EKG ---
[facility] [address] [place] [address] Test Date: 2019-03-21 Test Time: 16:01:03 Pat Name: JYOTSNA SOL Department: Room: Gender: F [employer] Supervisor: : 1930 Requested By: LONNIE EISENBERG Order Number: [id number] Reading MD: Measurements Intervals [place] Rate: 87 P: 52 WV: 224 QRS: 23 QRSD: 78 T: 46 QT: 374 QTc: 451 Interpretive Statements SINUS RHYTHM PROLONGED WV INTERVAL ABNORMAL ECG RI6.01 Unconfirmed report No previous ECG available for comparison
== END 2019-03-21 18:38 | disposition home or self-care (01) ==
LOC: ER 15:13
DX: I13.0 Hypertensive heart and chronic kidney disease with heart failure and stage 1 through stage 4 chronic kidney disease, or unspecified chronic kidney disease (principal); N18.9 Chronic kidney disease, unspecified; I50.9 Heart failure, unspecified; N17.9 Acute kidney failure, unspecified; B02.9 Zoster without complications; R79.89 Other specified abnormal findings of blood chemistry; Z91.81 History of falling; E78.00 Pure hypercholesterolemia, unspecified; R51 Headache; E03.9 Hypothyroidism, unspecified; M19.90 Unspecified osteoarthritis, unspecified site; M48.02 Spinal stenosis, cervical region; R53.1 Weakness
CPT/HCPCS: 36415; 70450; 71045; 72125; 80053; 81001; 82550; 83605; 83735; 83880; 84484; 85025; 85610; 87040; 93005; 96374; 96375; 99285; J2405; J3010